=== PATIENT | female | born 1970 ===

== ENCOUNTER → 2019-06-25 | Outpatient (CLI) | payer BC ==
[2019-06-25 19:30] LABS: Influenza A Positive (NEGATIVE); Influenza B Negative (NEGATIVE)
== END ==
LOC: LAB 17:52 → LAB SHORT 17:52
DX: J20.9 Acute bronchitis, unspecified (principal)
CPT/HCPCS: 87804

== ENCOUNTER 2021-10-13 09:46 | Day surgery (SDC) | payer BC ==
[~2021-10-13] VITALS: Ht 167.6 cm; Wt 58.6 kg
[~2021-10-13 09:46] MED LIST: MIRALAX17 GM PO; Metformin HCl750 MG PO
[2021-10-13] MEDS ORDERED: SIMV80 (10:30)
--- NOTE | 2021-10-13 12:18 | NUR ---
10/13/21 1218 SHILA CHING pt in chair dressing.
== END 2021-10-13 12:20 | disposition home or self-care (01) ==
LOC: ORSCSDS 09:46
PROVIDERS: Internal Medicine Gastroenterology
PROC: 0DBL8ZX Excision of Transverse Colon, Via Natural or Artificial Opening Endoscopic, Diagnostic (ICD-10-PCS; principal; 2021-10-13 11:15)
DX: Z12.11 Encounter for screening for malignant neoplasm of colon (principal); D12.3 Benign neoplasm of transverse colon; K64.8 Other hemorrhoids; Z86.010 Personal history of colon polyps; K59.09 Other constipation
CPT/HCPCS: 82947; 88305; J2704; J7120

== ENCOUNTER → 2022-11-02 | Outpatient (CLI) | payer BC ==
[~2022-11-02] MED LIST changes: +SIMV80
== END | disposition home or self-care (01) ==
LOC: LAB 15:30 → LAB SHORT 15:30
DX: E11.9 Type 2 diabetes mellitus without complications (principal)
CPT/HCPCS: 83036

== ENCOUNTER 2023-06-13 06:45 | Day surgery (SDC) | payer BC ==
[2023-06-13] MEDS ORDERED: METF500 (07:14)
[2023-06-13] MEDS ORDERED: ZOCOR20 MG (07:15)
[2023-06-13 09:01] VITALS: BP 112/76
== END 2023-06-13 08:55 | disposition home or self-care (01) ==
LOC: ORSCSDS 06:45
PROVIDERS: Internal Medicine Gastroenterology
PROC: 0DB58ZX Excision of Esophagus, Via Natural or Artificial Opening Endoscopic, Diagnostic (ICD-10-PCS; 2023-06-13)
PROC: 0D757ZZ Dilation of Esophagus, Via Natural or Artificial Opening (ICD-10-PCS; principal; 2023-06-13 08:00)
DX: R13.10 Dysphagia, unspecified (principal); E11.9 Type 2 diabetes mellitus without complications
CPT/HCPCS: 82947; 88305; J2704; J7120

== ENCOUNTER → 2024-09-11 | Outpatient (CLI) | payer BC ==
[~2024-09-11] MED LIST changes: +METF500; +ZOCOR20 MG
[2024-09-11 11:32] LABS: BASOPHILS ABSOLUTE AUTO 0.02 K/mm3 (0.00-0.23); BASOPHILS PERCENT AUTO 1 % (0-2); EOSINOPHILS ABSOLUTE AUTO 0.09 K/mm3 (0.00-0.68); EOSINOPHILS PERCENT AUTO 2 % (0-6); Hematocrit 37.7 % (33.0-51.0); Hemoglobin 13.1 g/dL (11.5-16.0); IMMATURE GRAN ABSOLUTE AUTO 0.01 K/mm3 (0.00-0.10); IMMATURE GRAN PERCENT AUTO 0 % (0-1); LYMPHOCYTES ABSOLUTE AUTO 1.63 K/mm3 (0.84-5.20); LYMPHOCYTES PERCENT AUTO 40 % (21-46); MONOCYTES ABSOLUTE AUTO 0.32 K/mm3 (0.16-1.47); MONOCYTES PERCENT AUTO 8 % (4-13); Mean Corpuscular HGB 31.2 pg (26.0-34.0); Mean Corpuscular HGB Conc 34.7 g/dL (31.5-36.5); Mean Corpuscular Volume 90 fL (80-100); Mean Platelet Volume 12.5 fL (9.1-12.4); NEUTROPHILS ABSOLUTE AUTO 1.98 K/mm3 (1.96-9.15); NEUTROPHILS PERCENT AUTO 49 % (41-73); Platelet Count 182 K/mm3 (150-400); RDW Coefficient Variation 11.6 % (11.7-14.2); RDW Standard Deviation 37.2 fL (35.1-46.3); White Blood Cell Count 4.05 K/mm3 (4.00-11.30)
[2024-09-11 11:55] LABS: Albumin, Blood 4.2 g/dL (3.4-5.0); Albumin/Globulin Ratio 1.4 (0.8-1.8); Bilirubin, Total 0.9 mg/dL (0.1-1.0); Bun/Creatinine Ratio 16.1 (12.0-20.0); Calcium, Blood 9.1 mg/dL (8.5-10.1); Creatinine, Blood 0.5 mg/dL (0.40-1.00); Free Thyroxine Index 2.2 % (1.3-4.8); Potassium, Blood 3.5 mmol/L (3.5-5.5); Thyroxine (T4) 5.9 ug/dL (4.8-13.9); Total Protein, Blood 7.2 g/dL (6.4-8.2)
== END ==
LOC: LAB 09:31 → LAB SHORT 09:31
PROVIDERS: Nurse Practitioner Family
DX: R00.0 Tachycardia, unspecified (principal)
CPT/HCPCS: 80053; 84436; 84443; 84479; 85025

== ENCOUNTER 2025-04-21 07:35 | Day surgery (SDC) | payer BC ==
[~2025-04-21] VITALS: Ht 167.6 cm; Wt 60.4 kg
[2025-04-21] MEDS ORDERED: Vitamin K100 MCG (07:58)
[2025-04-21] MEDS ORDERED: ERGO400 (07:58)
[2025-04-21] MEDS ORDERED: PROBIOTIC1 EA14 (07:59)
[2025-04-21 09:48] VITALS: BP 110/64
== END 2025-04-21 09:59 | disposition home or self-care (01) ==
LOC: ORSCSDS 07:35
PROVIDERS: Specialist
PROC: 0DBN8ZX Excision of Sigmoid Colon, Via Natural or Artificial Opening Endoscopic, Diagnostic (ICD-10-PCS; principal; 2025-04-21 09:15)
DX: Z12.11 Encounter for screening for malignant neoplasm of colon (principal); K63.5 Polyp of colon; K64.4 Residual hemorrhoidal skin tags; K64.8 Other hemorrhoids; K57.30 Diverticulosis of large intestine without perforation or abscess without bleeding; Z86.0101 Personal history of adenomatous and serrated colon polyps; E11.9 Type 2 diabetes mellitus without complications; E78.5 Hyperlipidemia, unspecified; Z79.84 Long term (current) use of oral hypoglycemic drugs; Z79.899 Other long term (current) drug therapy
CPT/HCPCS: 82947; 88305; J2704; J7120